=== PATIENT | female | born 2000 | race Two or more races ===

== ENCOUNTER 2024-05-21 07:55 | Day surgery (SDC) | payer BC, SELFPAY ==
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
[2024-05-20 11:37] VITALS: BMI 32.2
[2024-05-20 12:13] LABS: Basophils % (Auto) 1 % (0-2.5); Eosinophils # (Auto) 0.1 Thou/mm3 (0.0-0.5); Eosinophils % (Auto) 1 % (0-10); Hematocrit 35.7 % (36.0-46.0); Hemoglobin 11.8 g/dL (12.0-16.0); Immature Granulocytes % (Auto) 0 % (0-0); Immature Granulocytes Auto 0.02 Thou/mm3 (0.00-0.00); Lymphocytes # (Auto) 2.2 Thou/mm3 (1.0-4.8); Lymphocytes % (Auto) 34 % (10-50); Mean Corpuscular HGB Conc 33.1 g/dl (31.0-37.0); Mean Corpuscular Hemoglobin 26.9 pg (25.0-35.0); Mean Corpuscular Volume 81 fL (80-100); Monocytes # (Auto) 0.3 Thou/mm3 (0.0-0.8); Monocytes % (Auto) 4 % (0-12); Neutrophils % (Auto) 60 % (37-80); Nucleated Red Blood Cell % 0 /100 WBC (0); Platelet Count 290 Thou/mm3 (140-440); RDW Standard Deviation 41.2 fL (36.4-46.3); Red Blood Count 4.39 Miln/mm3 (4.00-5.20); White Blood Count 6.6 Thou/mm3 (3.6-11.0)
[2024-05-20 12:28] LABS: Alanine Aminotransferase 10 U/L (10-49); Albumin, Serum 4.6 gm/dL (3.5-5.0); Albumin/Globulin Ratio 1.6 (1.2-2.2); Alkaline Phosphatase 48 U/L (46-116); Anion Gap 8 (7-16); Aspartate Amino Transferase 14 U/L (0-34); BUN/Creatinine Ratio 8 Ratio (12-20); Beta HCG,Quantitative < 1 mIU/mL (<5.0); Bilirubin,Total 0.3 mg/dL (0.3-1.2); Blood Urea Nitrogen < 5 mg/dL (9-23); Carbon Dioxide 25.2 mMol/L (20.0-31.0); Chloride 105 mMol/L (98-107); Creatinine (Component) 0.6 mg/dL (0.6-1.3); Estimated Creatinine Clearance 183.6 mL/min (>60); Globulin 2.9 gm/dL (2.3-3.5); Glucose 92 mg/dL (74-106); Osmolality,Calculated 272 (275-295); Partial Thromboplastin Time 25.8 Seconds (22.0-36.0); Potassium 4.1 mMol/L (3.4-5.1); Prothrombin Time 10.7 Seconds (9.0-12.2); Sodium 138 mMol/L (136-145); Total Protein 7.5 gm/dL (5.7-8.2); eGFR > 60 See Note
[2024-05-21] VITALS (9 sets, daily range): BP systolic 110–139; BP diastolic 64–78; PULSE 62–97; RESP 12–20; TEMP 36.2–37.2; O2SAT 96–100; BMI 31.9
--- NOTE | 2024-05-21 11:28 | SUR.PHASEI ---
1128 Patient arrived to recovery resting comfortably in [facility], drowsy and able to arouse with verbal prompting, on oxygen 3L via nasal cannula, breathing unlabored, vital signs stable, denies pain, dressing intact to lower abdomen; dermabond, no bleeding noted, lung sounds clear upon auscultation, bilateral radial pulses present when palpated, report received from Dr. Wolf and Mica NR
[2024-05-21] MEDS: ONDANSETRON INJ 2 MG/ML INJ 2 ML 4 MG IV (12:23)
--- NOTE | 2024-05-21 12:35 | SUR.PHASEII ---
1223 Patient complaining of nausea, patient medicated per anesthesia order Zofran 4mg via IV, will monitor patient 1235 patient denies nausea, drinking 7up tolerating well
--- NOTE | 2024-05-21 13:00 | SUR.PHASEII ---
1300 Patient meets discharge criteria from recovery, awake and alert, breathing unlabored, vital signs stable, denies pain, dressing intact; no bleeding noted, patient drinking 7up, tolerating well, patient assisted with dressing into her clothing by her mother, discharge instructions given to patient and patients mother, mother signed discharge instructions. Patient given all her belongings prior to discharge, transported via wheelchair and left in a private vehicle.
--- NOTE | 2024-05-22 08:32 | ESOP_ITS ---
RE: ERIKA BRYANT : 2000 DATE OF OPERATION: 05/21/2024 PREOPERATIVE DIAGNOSIS: Bilateral adnexal masses. POSTOPERATIVE DIAGNOSES: 1. Bilateral adnexal masses. 2. Right ovary mature cystic teratoma. 3. Left ovarian cyst. PROCEDURE PERFORMED: Diagnostic laparoscopy and bilateral ovarian cystectomy. SURGEON: Quoc Hu DO RN ORTHOPAEDIC: SUKHWINDER Willingham ANESTHESIA: General. ANESTHESIOLOGIST: Dr. Wolf ESTIMATED BLOOD LOSS: 25 mL. COMPLICATIONS: None. COUNTS: Correct. PATHOLOGY: Right ovarian cyst dermoid.. Left ovarian cyst. No evidence of endometriosis. No pelvic adhesions. DESCRIPTION OF PROCEDURE: After proper informed consent was obtained and the patient made aware of the risks, complications, alternatives, benefits of the proposed procedure, she was taken to the operating room where she underwent induction of general anesthesia. She was placed in the dorsal lithotomy position and prepped and draped in the usual sterile fashion. A timeout was performed. A speculum was placed in the vagina. An [place] manipulator was placed in the uterus. Attention was then turned to the abdomen where the physician regowned and gloved. A 5-mm incision was made in the umbilical fold. With tenting up of the abdomen, a Veress needle was inserted, saline confirmed intraabdominal placement. An artificial pneumoperitoneum was created to 12 mmHg. A second incision was made in the midline. Through this 10-mm incision, a 10-mm trocar was inserted under direct visualization of the laparoscope and then a third incision was made in the left lower quadrant through this third incision, 5-mm incision was made and the trocar was inserted under direct visualization of the laparoscope. Using the Harmonic scalpel 1136 curved alex, the right ovarian cystectomy was performed and the left ovarian cystectomy was performed and the specimens were removed and sent to pathology. The fascia was closed with 0 Vicryl on a Zhang-Addie needle and the incisions were closed with 4-0 Monocryl. Each incision was infiltrated with Marcaine 0.5% without epinephrine and covered with Dermabond. Attention was then turned to the vagina where the uterus manipulator was removed. There was no bleeding at the end of the procedure. She was reversed from general anesthesia in the supine position and transferred to the recovery room in stable condition. She tolerated the procedure well. Counts were correct. I spoke with the patient's family the nature of her condition, intraoperative findings, expectations for recovery, all questions were answered. DT: :30:48 TT: 17:07:00 Ref: [id number] - TID: [id number] MTDD
== END 2024-05-21 13:00 | disposition home or self-care (01) ==
PROVIDERS: PCP Nurse Practitioner Family; Referring Provider Specialist; Visit Provider Specialist
PROC: (CPT 58662; principal; 2024-05-21 09:45)
DX: N83.02 Follicular cyst of left ovary (principal); D27.0 Benign neoplasm of right ovary
CPT/HCPCS: 58662; 36415; 80053; 84702; 85025; 85610; 85730; 86850; 86900; 86901; A4217; A4649; J0131; J0690; J1100; J2405; J2704; J3010; J3490

== ENCOUNTER → 2024-06-18 | Outpatient (CLI) | payer BC, SELFPAY ==
--- NOTE | 2024-06-18 10:14 | XR_ITS ---
Examination: CT abdomen with intravenous contrast CT pelvis with intravenous contrast 2-D coronal reconstructions 2-D sagittal reconstructions Date and time of exam:June 18, 2024 1125 hours INDICATIONS: Abdominal pain pelvic pain, one-month. CTDI: vol (mGy) 14.1 DLP: (mGycm) 827 Technique: Multiple axial sections of the abdomen and pelvis have been obtained. 64 slice high-resolution scanner used. 3 mm axial sections have been obtained, post intravenous injection cc [id number] 2-D sagittal, coronal reconstructions obtained. Low dose protocols were performed. One or more of the following dose reduction techniques were used; automated exposure control, adjustment of the mA and/or KV according to patient size, use of iterative reconstruction technique. Findings: No focal liver or splenic lesion No gallstones No pancreatic or adrenal mass No hydronephrosis or ureteral calculi Aorta normal size 12 mm fat-containing umbilical hernia Normal appendix Anteverted uterus Posterior left pelvic cyst, 36 mm Moderate free fluid in the pelvis IMPRESSION: Posterior left pelvic cyst, 36 mm Moderate free fluid in the pelvis Recommend pelvic sonography follow-up
[2024-06-18 10:53] LABS: HCG Qualitative,Urine Negative
== END | disposition home or self-care (01) ==
PROVIDERS: PCP Nurse Practitioner Family; Referring Provider Specialist; Visit Provider Specialist
DX: N94.89 Other specified conditions associated with female genital organs and menstrual cycle (principal); Z32.00 Encounter for pregnancy test, result unknown
CPT/HCPCS: 74177; 81025; A4649; Q9967

== ENCOUNTER → 2025-01-29 | Outpatient (CLI) | payer OTHER, SELFPAY ==
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
== END | disposition home or self-care (01) ==
LOC: CDIM 09:08
PROVIDERS: PCP Family Medicine; Referring Provider Orthopaedic Surgery Orthopaedic Surgery of the Spine; Visit Provider Orthopaedic Surgery Orthopaedic Surgery of the Spine
DX: M51.360 Other intervertebral disc degeneration, lumbar region with discogenic back pain only (principal)
CPT/HCPCS: 72100

== ENCOUNTER → 2025-05-16 | Outpatient (CLI) | payer OTHER, SELFPAY ==
--- NOTE | 2025-05-16 10:35 | XR_ITS ---
EXAMINATION: PA lateral chest 2 views TECHNIQUE: Upright PA lateral chest 2 views Date and time: May 16, 2025, 11:00 a.m. INDICATIONS: Shortness of breath several months. FINDINGS: Normal heart size. Lungs are clear. Intact osseous structures. IMPRESSION: No active disease
[2025-05-16 11:52] LABS: Basophils # (Auto) 0.1 Thou/mm3 (0.0-0.2); Basophils % (Auto) 1 % (0-2.5); Eosinophils # (Auto) 0.1 Thou/mm3 (0.0-0.5); Eosinophils % (Auto) 2 % (0-10); Hematocrit 35.0 % (36.0-46.0); Hemoglobin 11.0 g/dL (12.0-16.0); Immature Granulocytes Auto 0.01 Thou/mm3 (0.00-0.00); Lymphocytes # (Auto) 2.5 Thou/mm3 (1.0-4.8); Lymphocytes % (Auto) 43 % (10-50); Mean Corpuscular HGB Conc 31.4 g/dl (31.0-37.0); Mean Corpuscular Hemoglobin 24.9 pg (25.0-35.0); Mean Corpuscular Volume 79 fL (80-100); Monocytes # (Auto) 0.5 Thou/mm3 (0.0-0.8); Monocytes % (Auto) 8 % (0-12); Neutrophils # (Auto) 2.7 Thou/mm3 (1.8-7.7); Neutrophils % (Auto) 46 % (37-80); Nucleated Red Blood Cell # 0.00 Thou/mm3 (0.00-0.00); Nucleated Red Blood Cell % 0 /100 WBC (0); Platelet Count 334 Thou/mm3 (140-440); RDW Standard Deviation 40.9 fL (36.4-46.3); Red Blood Count 4.42 Miln/mm3 (4.00-5.20); White Blood Count 5.8 Thou/mm3 (3.6-11.0)
[2025-05-16 12:50] LABS: Alanine Aminotransferase 13 U/L (10-49); Albumin, Serum 4.7 gm/dL (3.5-5.0); Albumin/Globulin Ratio 1.7 (1.2-2.2); Alkaline Phosphatase 50 U/L (46-116); Anion Gap 10 (7-16); Aspartate Amino Transferase 17 U/L (0-34); BUN/Creatinine Ratio 10 Ratio (12-20); Bilirubin,Total 0.3 mg/dL (0.3-1.2); Blood Urea Nitrogen 6 mg/dL (9-23); Calcium 9.6 mg/dL (8.3-10.6); Calcium (Corrected) 9.6 mg/dL (8.5-10.1); Carbon Dioxide 25.5 mMol/L (20.0-31.0); Chloride 107 mMol/L (98-107); Creatinine (Component) 0.6 mg/dL (0.6-1.3); Globulin 2.8 gm/dL (2.3-3.5); Glucose 93 mg/dL (74-106); Osmolality,Calculated 280 (275-295); Potassium 4.4 mMol/L (3.4-5.1); Sodium 142 mMol/L (136-145); Total Protein 7.5 gm/dL (5.7-8.2); eGFR > 60 See Note
== END | disposition home or self-care (01) ==
LOC: CDIM 10:15 → COPL 11:07
PROVIDERS: PCP Family Medicine; Referring Provider Family Medicine; Visit Provider Nurse Practitioner Family
DX: M51.06 Intervertebral disc disorders with myelopathy, lumbar region (principal)
CPT/HCPCS: 36415; 71046; 80053; 85025